=== PATIENT | male | born 1945 | race Caucasian/White ===

== ENCOUNTER 2018-06-10 11:13 | Emergency (ER) | payer MEDICAID ==
[~2018-06-10] VITALS: Ht 172.7 cm; Wt 85.0 kg
[2018-06-10 12:30] LABS: BASOPHILS % 0.4 % (0.0-2.0); EOSINOPHILS % 2.5 % (0.0-5.0); HEMATOCRIT. 33.3 % (42.0-52.0); HEMOGLOBIN. 11.3 g/dL (14.0-18.0); LYMPHOCYTES % 7.9 % (20.0-50.0); MEAN CORPUSCULAR HEMOGLOBIN 32.3 pg (28.0-32.0); MEAN CORPUSCULAR VOLUME 94.7 fL (80.0-94.0); MEAN PLATELET VOLUME 8.7 fl (7.4-10.4); MONOCYTES % 6.3 % (2.0-8.0); NEUTROPHILS % 82.9 % (40.0-76.0); PLATELET 170 x1000/uL (130-400); RED BLOOD CELL COUNT 3.52 mill/uL (4.7-6.1); RED CELL DISTRIBUTION WIDTH 13.3 % (11.6-14.6)
[2018-06-10 12:35] LABS: PROTHROMBIN TIME 10.4 sec (9.1-11.1)
[2018-06-10 12:39] LABS: CHLORIDE 105 mEq/L (98-107)
[2018-06-10 14:26] VITALS: BP 136/73
== END 2018-06-10 14:38 | disposition short-term general hospital (02) ==
LOC: ER 11:13 → CANBEDREQ 17:49
DX: R55 Syncope and collapse (principal); E11.9 Type 2 diabetes mellitus without complications; E78.00 Pure hypercholesterolemia, unspecified; I10 Essential (primary) hypertension
CPT/HCPCS: 36415; 71045; 82962; 83880; 84484; 93005; 99285